=== PATIENT | male | born 1930 | race Asian ===

== ENCOUNTER → 2017-09-29 | Outpatient (CLI) | payer OTHER ==
[~2017-09-29] MED LIST: ASPIRIN LOW-STR81 MG PO; OCUVITE; Z.0.LOSARTAN POTASS2 PO; Z.0.OMEPRAZOLE20 M1 PO; Z.0.SINGULAIR10 MG PO; Z.0.TERAZOSIN HCL5 M PO; Z.2.DOXAZOSIN MESYLA PO; [UNRECOGNIZED DRUG - CODE]; [UNRECOGNIZED DRUG - OTHER]
--- NOTE | 2017-09-29 08:26 | Diagnostic Imaging Report ---
PROCEDURE: CT ABDOMEN AND PELVIS WITHOUT CONTRAST TECHNIQUE: The abdomen and pelvis were scanned utilizing a multidetector helical scanner from the diaphragm to the lesser trochanter. No oral or intravenous contrast was administered per referring physician request. Coronal and sagittal multiplanar reformations were obtained. COMPARISON: None. INDICATIONS: NEOPLASM OF PROSTATE FINDINGS: ABSENCE OF INTRAVENOUS CONTRAST DECREASES SENSITIVITY FOR DETECTION OF FOCAL LESIONS AND VASCULAR PATHOLOGY. LOWER THORAX: Minimal linear scar in the lingula and bilateral lower lobes. HEPATOBILIARY: No focal hepatic lesions. No biliary ductal dilatation. SPLEEN: No splenomegaly. PANCREAS: No focal masses or ductal dilatation. ADRENALS: No adrenal nodules. KIDNEYS/URETERS: 1.9 cm exophytic lesion projecting from the upper pole of the right kidney has average internal attenuation 10 Hounsfield units, in keeping with a cyst. No additional gross renal mass lesion. No hydronephrosis. No renal or ureteral calculi. PELVIC ORGANS/BLADDER: The urinary bladder is unremarkable. No prostatomegaly. PERITONEUM / RETROPERITONEUM: No ascites. No pneumoperitoneum. LYMPH NODES: No pelvic side wall, retroperitoneal, or mesenteric lymphadenopathy. VESSELS: Atherosclerotic calcification of the abdominal aorta, major branch vessels, and iliac arterial systems without aneurysmal dilatation. Evaluation is otherwise limited in the absence of intravenous contrast. GI TRACT: The large bowel shows no gross distention or wall thickening. Gas and fecal material are noted throughout. The appendix is normal. No small bowel dilatation to suggest obstruction. BONES AND SOFT TISSUES: No osseous destructive lesions. Scattered sclerotic foci within the right ischial tuberosity, left acetabulum, left iliac wing, all subcentimeter in size and most likely representing bone islands. Mild degenerative disc changes of the lumbar spine. Bilateral L5 pars interarticularis defects without spondylolisthesis. No focal soft tissue abnormalities. IMPRESSION: No acute intra-abdominal or pelvic CT abnormalities. No findings to suggest abdominal or pelvic metastatic disease in this patient with reported history of prostate cancer, though evaluation is limited in the absence of intravenous contrast. Atherosclerotic vascular disease. Dictated by: Howard Amezquita M.D. on 09/29/2017 at 8:26 Electronically approved by: Howard Amezquita M.D. on 09/29/2017 at 8:26
== END ==
LOC: CT 07:33
PROVIDERS: ATTEND Urology
DX: C61 Malignant neoplasm of prostate (principal)
CPT/HCPCS: 74176

== ENCOUNTER → 2017-10-02 | Outpatient (CLI) | payer OTHER ==
--- NOTE | 2017-10-02 19:54 | Diagnostic Imaging Report ---
Bone Scan, delayed phase INDICATION: 87 M with prostate cancer diagnosed in 2015 now with rising PSA. COMPARISON: CT abdo/pelvis 09/29/2017 REPORT: Approximately 3 hours following intravenous administration of 26.7 mCi of Tc-99m MDP, delayed total body images in the anterior and posterior projections and selected spot images were obtained. Distribution of tracer activity is unremarkable throughout the skeletal system. No abnormal accumulation of tracer is seen in the soft tissues or urinary tract. IMPRESSION: No scan evidence of metastatic bone disease. Signed by: Dr. Radha Mcdaniels M.D. on 10/02/2017 7:50 PM
== END ==
LOC: NM 08:31
PROVIDERS: ATTEND Urology
DX: C61 Malignant neoplasm of prostate (principal); N42.9 Disorder of prostate, unspecified
CPT/HCPCS: 78306; A9503